=== PATIENT | female | born 1980 | race Caucasian/White ===

== ENCOUNTER 2019-04-16 20:04 | Emergency (ER) | payer BC ==
--- NOTE | 2019-04-16 20:36 | ERPHSYRPT ---
- History of Present Illness Time Seen by Provider: 04/16/19 20:35 Source: patient, family Exam Limitations: no limitations Physician History: This is a 38-year-old obese female who 3 days ago underwent a laparoscopic bilateral oophorectomy with vaginal reconstruction. Soon after surgery patient was experiencing sore throat, shortness of breath and cough. The sore throat has resolved. However her shortness of breath and cough have persisted. Patient denies chest pain. She has no significant abdominal pain. She is noted no abnormal vaginal discharge. Patient states that she has been active and ambulating. Patient had a fever of 100.7 F at home but is afebrile on arrival here in the emergency department. Timing/Duration: day(s) Cough Quality/Degree: mild, dry cough Possible Cause: no prior episodes Modifying Factors: Improves With: coughing, deep breath, exertion Associated Symptoms: fever, cough, shortness of breath, No chest pain/soreness Allergies/Adverse Reactions: azithromycin Allergy (Intermediate, Verified 04/16/19 20:43) Rash cefaclor [From Ceclor] Allergy (Intermediate, Verified 04/16/19 20:43) Rash Home Medications: Docusate Sodium 100 mg [Colace 100 MG] 100 mg PO BID 04/16/19 [History] Ibuprofen 200 mg [Motrin 200 mg] 800 mg PO Q8H PRN PRN 04/16/19 [History] - Review of Systems Constitutional: Fever Eyes: No Symptoms Ears, Nose, & Throat: No Symptoms Respiratory: Cough, Dyspnea, Wheezing Cardiac: No Symptoms, No Chest Pain Abdominal/Gastrointestinal: No Symptoms, No Abdominal Pain, No Nausea, No Vomiting, No Diarrhea Genitourinary Symptoms: No Symptoms Musculoskeletal: No Symptoms Skin: No Symptoms Neurological: No Symptoms Psychological: No Symptoms Endocrine: No Symptoms Hematologic/Lymphatic: No Symptoms Immunological/Allergic: No Symptoms All Other Systems: Reviewed and Negative - Past Medical History Neurological History: No Pertinent History ENT History: No Pertinent History Cardiac History: No Pertinent History Respiratory History: No Pertinent History Endocrine Medical History: No Pertinent History Musculoskeletal History: No Pertinent History GI Medical History: No Pertinent History History: No Pertinent History Psycho-Social History: No Pertinent History Female Reproductive Disorders: No Pertinent History - Past Surgical History Neuro Surgical History: No Pertinent History Cardiac: No Pertinent History Respiratory: No Pertinent History Gastrointestinal: No Pertinent History Genitourinary: No Pertinent History Musculoskeletal: No Pertinent History Female Surgical History: No Pertinent History - Nursing Vital Signs Nursing Vital Signs: Initial Vital Signs Temperature 97.9 F 04/16/19 20:24 Pulse Rate 79 04/16/19 20:24 Respiratory Rate 18 04/16/19 20:24 Blood Pressure 130/65 04/16/19 20:24 O2 Sat by Pulse Oximetry 95 04/16/19 20:24 Pain Scale Pain Intensity 0 - Physical Exam General Appearance: mild distress, alert, anxiety, obese Eye Exam: PERRL/EOMI, eyes nml inspection Ears, Nose, Throat Exam: normal ENT inspection, moist mucous membranes Neck Exam: normal inspection, non-tender, supple, full range of motion Respiratory Exam: normal breath sounds, lungs clear, airway intact, No chest tenderness, No respiratory distress Cardiovascular Exam: regular rate/rhythm, normal heart sounds, normal peripheral pulses Gastrointestinal/Abdomen Exam: soft, normal bowel sounds, No tenderness Pelvic Exam: not done Rectal Exam: not done Back Exam: normal inspection, normal range of motion, No CVA tenderness, No vertebral tenderness Extremity Exam: normal inspection, normal range of motion, pelvis stable Neurologic Exam: alert, oriented x 3, cooperative, 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 Skin Exam: normal color, warm, dry Lymphatic Exam: No adenopathy SpO2 Interpretation: borderline oxygenation O2 Delivery: Room Air - Course Nursing assessment & vital signs reviewed: Yes Ordered Tests: Active Orders 24 hr Category Date Time Status IV Insertion STAT Care 04/16/19 20:49 Active Pulse Oximetry (ED) STAT Care 04/16/19 20:49 Active CHEST 1 VIEW (PORTABLE) Stat Exams 04/16/19 20:50 Taken CHEST WITH CONTRAST [CT] Stat Exams 04/16/19 21:45 Taken BLOOD CULTURE Stat Lab 04/16/19 21:10 Received CBC W DIFF Stat Lab 04/16/19 20:14 Completed CMP Stat Lab 04/16/19 20:14 Completed D-DIMER QUANTITATIVE Stat Lab 04/16/19 21:10 Completed Lactic Acid Stat Lab 04/16/19 22:26 Completed UA W/RFX UR CULTURE Stat Lab 04/16/19 20:14 Completed Respiratory Therapy Assessment DAILY RT 04/16/19 21:47 Active Medication Summary Generic Name Dose Route Start Last Admin Trade Name Freq PRN Reason Stop Dose Admin Levofloxacin/Dextrose 750 mg in 150 mls @ 100 mls/hr 04/16/19 23:11 04/16/19 23:15 Levofloxacin 750mg/150ml D5w IV 04/17/19 00:40 100 mls/hr STAT STA 100 mls/hr Administration Discontinued Medications Generic Name Dose Route Start Last Admin Trade Name Guillermina PRN Reason Stop Dose Admin Hydrocodone Bitart/Acetaminophen 10 ml 04/16/19 20:51 04/16/19 21:23 Hydrocodone-Acetamin 2.5-108/5 Ml Solution PO 04/16/19 20:52 10 ml STAT STA Administration Hydrocodone Bitart/Acetaminophen Confirm 04/16/19 21:22 Hydrocodone-Acetamin 2.5-108/5 Ml Solution Administered 04/16/19 21:23 Dose 10 ml .ROUTE .STK-MED ONE Albuterol/Ipratropium Confirm 04/16/19 21:42 Duoneb 0.5-3 Mg/3 Ml Neb Administered 04/16/19 21:43 Dose 3 ml IH .STK-MED ONE Albuterol/Ipratropium 3 ml 04/16/19 21:46 04/16/19 21:48 Duoneb 0.5-3 Mg/3 Ml Neb IH 04/16/19 21:47 3 ml STAT ONE Administration Sodium Chloride 1,000 mls @ 999 mls/hr 04/16/19 20:49 04/16/19 22:36 Sodium Chloride 0.9% 1000 Ml IV 04/16/19 21:49 Infused .Q1H1M STA Infusion Sodium Chloride Confirm 04/16/19 21:22 Sodium Chloride 0.9% 1000 Ml Administered 04/16/19 21:23 Dose 1,000 mls @ ud .ROUTE .STK-MED ONE Levofloxacin/Dextrose Confirm 04/16/19 23:14 Levofloxacin 750mg/150ml D5w Administered 04/16/19 23:15 Dose 750 mg in 150 mls @ ud IV .STK-MED ONE Methylprednisolone Sodium Succinate 125 mg 04/16/19 23:11 04/16/19 23:15 Solu-Medrol 125 Mg IV 04/16/19 23:12 125 mg STAT ONE Administration Methylprednisolone Sodium Succinate Confirm 04/16/19 23:14 Solu-Medrol 125 Mg Administered 04/16/19 23:15 Dose 125 mg .ROUTE .STK-MED ONE Lab/Rad Data: Laboratory Result Diagrams 04/16/19 20:14 04/16/19 20:14 Laboratory Results 04/16/19 04/16/19 04/16/19 Range/Units 22:26 21:12 21:10 WBC (4.0-10.5) K/mm3 RBC (4.1-5.4) M/mm3 Hgb (12.0-16.0) gm/dl Hct (35-47) % MCV (78-100) fl MCH (26-32) pg MCHC (32-36) g/dl RDW (11.5-14.0) % Plt Count (150-450) K/mm3 MPV (7.5-11.0) fl Gran % (36.0-66.0) % Eos # (Auto) (0-0.5) Absolute Lymphs (auto) (1.0-4.6) Absolute Monos (auto) (0.0-1.3) Lymphocytes % (24.0-44.0) % Monocytes % (0.0-12.0) % Eosinophils % (0.00-5.0) % Basophils % (0.0-0.4) % Absolute Granulocytes (1.4-6.9) Basophils # (0-0.4) D-Dimer 903 H* (215-500) ng/mL Sodium (137-145) mmol/L Potassium (3.5-5.1) mmol/L Chloride (98-107) mmol/L Carbon Dioxide (22-30) mmol/L Anion Gap (5-15) MEQ/L BUN (7-17) mg/dL Creatinine (0.52-1.04) mg/dL Estimated GFR ML/MIN Glucose (74-106) mg/dL Lactic Acid 1.1 (0.4-2.0) Calcium (8.4-10.2) mg/dL Total Bilirubin (0.2-1.3) mg/dL AST (14-36) U/L ALT (0-35) U/L Alkaline Phosphatase (38-126) U/L Serum Total Protein (6.3-8.2) g/dL Albumin (3.5-5.0) g/dL Urine Color (YELLOW) Urine Appearance (CLEAR) Urine pH (5-6) Ur Specific [place] (1.005-1.025) Urine Protein (Negative) Urine Ketones (NEGATIVE) Urine Blood (0-5) Jude/ul Urine Nitrite (NEGATIVE) Urine Bilirubin (NEGATIVE) Urine Urobilinogen (0-1) mg/dL Ur Leukocyte Esterase (NEGATIVE) Urine WBC (Auto) (0-5) /HPF Urine RBC (Auto) (0-2) /HPF U Epithel Cells (Auto) (FEW) /HPF Urine Bacteria (Auto) (NEGATIVE) /HPF Urine Mucus (Auto) (NEGATIVE) /HPF Urine Culture Reflexed (NO) Urine Glucose (NEGATIVE) mg/dL Influenza Type A Ag NEGATIVE (NEGATIVE) Influenza Type B Ag NEGATIVE (NEGATIVE) RSV (PCR) NEGATIVE (Negative) 04/16/19 04/16/19 04/16/19 Range/Units 20:14 20:14 20:14 WBC 11.3 H (4.0-10.5) K/mm3 RBC 4.44 (4.1-5.4) M/mm3 Hgb 13.7 (12.0-16.0) gm/dl Hct 40.5 (35-47) % MCV 91.2 (78-100) fl MCH 30.9 (26-32) pg MCHC 33.8 (32-36) g/dl RDW 12.5 (11.5-14.0) % Plt Count 232 (150-450) K/mm3 MPV 10.3 (7.5-11.0) fl Gran % 61.5 (36.0-66.0) % Eos # (Auto) 0.48 (0-0.5) Absolute Lymphs (auto) 2.95 (1.0-4.6) Absolute Monos (auto) 0.91 (0.0-1.3) Lymphocytes % 26.1 (24.0-44.0) % Monocytes % 8.0 (0.0-12.0) % Eosinophils % 4.2 (0.00-5.0) % Basophils % 0.2 (0.0-0.4) % Absolute Granulocytes 6.95 H (1.4-6.9) Basophils # 0.02 (0-0.4) D-Dimer (215-500) ng/mL Sodium 135 L (137-145) mmol/L Potassium 4.1 (3.5-5.1) mmol/L Chloride 106 (98-107) mmol/L Carbon Dioxide 23 (22-30) mmol/L Anion Gap 10.6 (5-15) MEQ/L BUN 15 (7-17) mg/dL Creatinine 0.96 (0.52-1.04) mg/dL Estimated GFR > 60.0 ML/MIN Glucose 101 (74-106) mg/dL Lactic Acid (0.4-2.0) Calcium 9.0 (8.4-10.2) mg/dL Total Bilirubin 0.40 (0.2-1.3) mg/dL AST 18 (14-36) U/L ALT 14 (0-35) U/L Alkaline Phosphatase 64 (38-126) U/L Serum Total Protein 7.4 (6.3-8.2) g/dL Albumin 3.9 (3.5-5.0) g/dL Urine Color STRAW (YELLOW) Urine Appearance CLEAR (CLEAR) Urine pH 6.0 (5-6) Ur Specific [place] 1.005 (1.005-1.025) Urine Protein NEGATIVE (Negative) Urine Ketones NEGATIVE (NEGATIVE) Urine Blood NEGATIVE (0-5) Jude/ul Urine Nitrite NEGATIVE (NEGATIVE) Urine Bilirubin NEGATIVE (NEGATIVE) Urine Urobilinogen NEGATIVE (0-1) mg/dL Ur Leukocyte Esterase NEGATIVE (NEGATIVE) Urine WBC (Auto) 0-2 (0-5) /HPF Urine RBC (Auto) NONE (0-2) /HPF U Epithel Cells (Auto) RARE (FEW) /HPF Urine Bacteria (Auto) NONE (NEGATIVE) /HPF Urine Mucus (Auto) SLIGHT (NEGATIVE) /HPF Urine Culture Reflexed NO (NO) Urine Glucose NEGATIVE (NEGATIVE) mg/dL Influenza Type A Ag (NEGATIVE) Influenza Type B Ag (NEGATIVE) RSV (PCR) (Negative) - Progress Progress: improved, re-examined Air Movement: good Progress Note: 04/16/19 23:23 cxr-right upper lobe infiltrate. cta chest-right upper lobe pneumonia; no pulm emboli pt states she is feeling and breathing better. she wants to go home and try outpt tx. i think this is reasonable Blood Culture(s) Obtained: Yes Antibiotics given: Yes Counseled pt/family regarding: lab results, diagnosis, need for follow-up, rad results - Departure Departure Disposition: Home Clinical Impression: Pneumonia Condition: Stable Critical Care Time: No Referrals: MONET CARTER, [employer] [Primary Care Provider] - Additional Instructions: drink plenty of fluids. follow up with primary doctor for further management. return to ED for worsening symptoms Prescriptions: Albuterol 8 gm Mdi Hfa [Ventolin Hfa MDI] 8 gm IH Q4H #1 [email or web address] Hydrocodone Bit/Acetaminophen [Hydrocodone-Acetaminophen Soln] 10 ml PO Q6H # 120 ml Levofloxacin [Levaquin 500 MG Tablet] 500 mg PO DAILY #7 tablet Prednisone 10 mg [Deltasone 10 mg] 10 mg PO TID #9 tablet
[2019-04-16 21:08] LABS: Absolute Neutrophil Ct (ANC) 6.95 (1.4-6.9); BASOPHIL % 0.2 % (0.0-0.4); Basophil (Absolute #) 0.02 (0-0.4); Eosinophil % 4.2 % (0.00-5.0); Eosinophil (Absolute #) 0.48 (0-0.5); Hematocrit 40.5 % (35-47); Hemoglobin 13.7 gm/dl (12.0-16.0); Lymphocyte (Absolute #) 2.95 (1.0-4.6); Lymphocytes % 26.1 % (24.0-44.0); Mean Cell Volume 91.2 fl (78-100); Mean Corpuscular Hemoglobin 30.9 pg (26-32); Mean Corpuscular Hgb Concent. 33.8 g/dl (32-36); Mean Platelet Volume 10.3 fl (7.5-11.0); Monocyte (Absolute #) 0.91 (0.0-1.3); Neutrophil % 61.5 % (36.0-66.0); Platelet Count 232 K/mm3 (150-450); Red Blood Count 4.44 M/mm3 (4.1-5.4); Red Cell Distribution Width 12.5 % (11.5-14.0); White Blood Count 11.3 K/mm3 (4.0-10.5)
[2019-04-16 21:11] LABS: Appearance CLEAR (CLEAR); Bilirubin NEGATIVE (NEGATIVE); Blood NEGATIVE Ery/ul (0-5); Epithelial Cells RARE /HPF (FEW); Glucose NEGATIVE (NEGATIVE); Ketones NEGATIVE (NEGATIVE); Leukocyte Esterase NEGATIVE (NEGATIVE); Mucus SLIGHT /HPF (NEGATIVE); Nitrite NEGATIVE (NEGATIVE); Protein,Urine Dip NEGATIVE (Negative); Specific Gravity 1.005 (1.005-1.025); Urobilinogen NEGATIVE mg/dL (0-1); WBC 0-2 /HPF (0-5)
[2019-04-16 21:16] LABS: ALBUMIN 3.9 g/dL (3.5-5.0); ALKALINE PHOSPHATASE 64 U/L (38-126); ANION GAP 10.6 MEQ/L (5-15); BLOOD UREA NITROGEN 15 mg/dL (7-17); CHLORIDE 106 mmol/L (98-107); Carbon Dioxide 23 mmol/L (22-30); Creatinine 1 0.96 mg/dL (0.52-1.04); Glucose 101 mg/dL (74-106); Potassium 4.1 mmol/L (3.5-5.1); SGOT/AST 18 U/L (14-36); SGPT/ALT 14 U/L (0-35); SODIUM 135 mmol/L (137-145); Total Protein 7.4 g/dL (6.3-8.2)
[2019-04-16] MEDS ORDERED: HYDROCODONE-ACETAMIN 2.5-108/5 ML SOLUTION ONE ×2 (21:22→23:38)
[2019-04-16] MEDS ORDERED: Sodium Chloride 0.9% 1000 ML 1,000 ML ONE (21:22)
[2019-04-16] MEDS: HYDROCODONE-ACETAMIN 2.5-108/5 ML SOLUTION PO STA ×2 (21:23→23:40)
[2019-04-16] MEDS: Sodium Chloride 0.9% 1000 ML 1,000 ML IV STA (21:23)
[2019-04-16] MEDS ORDERED: DUONEB 0.5-3 MG/3 ml Neb IH ONE (21:42)
[2019-04-16] MEDS: DUONEB 0.5-3 MG/3 ml Neb IH ONE (21:48)
[2019-04-16 21:57] LABS: INFLUENZA A NEGATIVE (NEGATIVE); INFLUENZA B NEGATIVE (NEGATIVE); RESPIRATORY SYNCTIAL VIRUS NEGATIVE (Negative)
[2019-04-16] MEDS ORDERED: LEVOFLOXACIN 750MG/150ML D5W 750 MG/150 ML BAG IV ONE (23:14)
[2019-04-16] MEDS ORDERED: solu-MEDROL 125 MG ONE (23:14)
[2019-04-16] MEDS: LEVOFLOXACIN 750MG/150ML D5W 750 MG/150 ML BAG IV STA (23:15)
[2019-04-16] MEDS: solu-MEDROL 125 MG IV ONE (23:15)
[2019-04-17 00:57] VITALS: BP 154/91; PULSE 78; O2SAT 97
--- NOTE | 2019-04-17 09:03 | XRAY ---
Indication: Fever, cough, and elevated d-dimer. Pneumonia. Status post bilateral oophorectomy. Multiple contiguous axial images obtained through the chest using 80 cc Isovue 370 contrast and PE protocol. Comparison: None There is good opacification of the pulmonary arteries to include the lobar and segmental branches. No filling defect or pulmonary embolus. Heart is not enlarged. Aorta is normal in course and caliber. No pathologic mediastinal/hilar lymphadenopathy. Examination of lung parenchyma demonstrates posterior right upper lobe consolidating airspace disease. Minimal bilateral dependent atelectasis. No suspicious pulmonary mass or effusion. Bony thorax intact with minimal degenerative changes throughout the spine. Limited upper abdomen demonstrates mild fatty liver, 13 cm splenomegaly, and cholecystectomy clips. There is small air collection in the deep muscles of the right flank/mid axillary line and minimal anterior abdominal subcutaneous soft tissue changes presumed related to recent surgery. Impression: 1. Negative pulmonary embolus. 2. Right upper lobe consolidating pneumonia. 3. Incidental fatty liver and splenomegaly. Comment: Preliminary interpretation was made by [facility]. No critical discrepancy.
--- NOTE | 2019-04-17 09:05 | XRAY ---
Indication: Cough and short of breath. Status post bilateral oophorectomy. Comparison: None Portable apical lordotic chest demonstrates inferior right upper lobe airspace disease. Remaining heart and lungs normal. Bony thorax intact with incidental right upper quadrant abdomen subcutaneous air presumed related to recent surgery.
== END 2019-04-17 00:47 | disposition home or self-care (01) ==
LOC: ED 20:04
DX: J18.9 Pneumonia, unspecified organism (principal)
CPT/HCPCS: 36000; 36415; 71045; 71260; 80053; 81001; 83605; 85025; 85379; 87040; 87631; 94640; 94760; 96360; 96365; 96374; 99284; J1956; J2930; A9270-GY

== ENCOUNTER 2019-04-24 10:26 | Emergency (ER) | payer BC ==
--- NOTE | 2019-04-24 10:37 | ERPHSYRPT ---
- History of Present Illness Time Seen by Provider: 04/24/19 10:37 Source: patient, family Exam Limitations: no limitations Physician History: This is a 38-year-old female who presents with coughing symptoms. On 04/16/2019 patient was diagnosed with a postoperative right upper lobe pneumonia. A CAT scan with contrast was performed on that same date and there was no evidence of any pulmonary emboli. Patient was treated as an outpatient with albuterol inhaler, Lortab elixir, Levaquin and prednisone. Patient symptoms were improving. However in the last couple days patient's symptoms have returned. Patient was seen at her primary care physician's office earlier today and patient decided to come to the emergency department for further evaluation and management. Patient is allergic to azithromycin and cefaclor. Patient denies chest pain. Patient was tested for influenza today in the office and this was reported to me as being negative. Timing/Duration: day(s) (Couple of) Cough Quality/Degree: moderate, dry cough Possible Cause: occasional episodes Modifying Factors: Improves With: coughing Associated Symptoms: cough Allergies/Adverse Reactions: azithromycin Allergy (Intermediate, Verified 04/24/19 10:46) Rash cefaclor [From [facility]] Allergy (Intermediate, Verified 04/24/19 10:46) Rash Home Medications: Docusate Sodium 100 mg [Colace 100 MG] 100 mg PO BID 04/16/19 [History] Ibuprofen 200 mg [Motrin 200 mg] 800 mg PO Q8H PRN PRN 04/16/19 [History] Hx Tetanus, Diphtheria Vaccination/Date Given: Yes Hx Influenza Vaccination/Date Given: Yes Hx Pneumococcal Vaccination/Date Given: No - Review of Systems Constitutional: No Symptoms Eyes: No Symptoms Ears, Nose, & Throat: No Symptoms Respiratory: Cough Cardiac: No Symptoms Abdominal/Gastrointestinal: No Symptoms Genitourinary Symptoms: No Symptoms Musculoskeletal: No Symptoms Skin: No Symptoms Neurological: No Symptoms Psychological: No Symptoms Endocrine: No Symptoms Hematologic/Lymphatic: No Symptoms Immunological/Allergic: No Symptoms All Other Systems: Reviewed and Negative - Past Medical History Pertinent Past Medical History: Yes Neurological History: No Pertinent History ENT History: No Pertinent History Cardiac History: No Pertinent History Respiratory History: No Pertinent History Endocrine Medical History: No Pertinent History Musculoskeletal History: No Pertinent History GI Medical History: No Pertinent History History: No Pertinent History Psycho-Social History: No Pertinent History Female Reproductive Disorders: No Pertinent History Other Medical History: stump tumor, ear problems - Past Surgical History Past Surgical History: Yes Neuro Surgical History: No Pertinent History Cardiac: No Pertinent History Respiratory: No Pertinent History Gastrointestinal: No Pertinent History Genitourinary: No Pertinent History Musculoskeletal: No Pertinent History Female Surgical History: No Pertinent History Other Surgical History: mastoidectomy, mult ear surgeries, tube lt ear. hysterectomy- stump tumor- 2 yrs ago. bilat oopherectomy on - Social History Smoking Status: Current every day smoker How long have you smoked: 20yrs Exposure to second hand smoke: No Patient Lives Alone: No - Nursing Vital Signs Nursing Vital Signs: Initial Vital Signs Temperature 97.7 F 04/24/19 10:36 Pulse Rate 94 H 04/24/19 10:36 Blood Pressure 131/96 04/24/19 10:36 O2 Sat by Pulse Oximetry 99 04/24/19 10:36 Pain Scale Pain Intensity 0 - Physical Exam General Appearance: mild distress, alert, anxiety, obese Eye Exam: PERRL/EOMI Ears, Nose, Throat Exam: normal ENT inspection, moist mucous membranes Neck Exam: normal inspection, non-tender, supple, full range of motion Respiratory Exam: normal breath sounds, lungs clear, airway intact, No chest tenderness, No respiratory distress, No accessory muscle use Cardiovascular Exam: regular rate/rhythm, normal heart sounds, normal peripheral pulses Gastrointestinal/Abdomen Exam: soft, normal bowel sounds, No tenderness Pelvic Exam: not done Rectal Exam: not done Back Exam: normal inspection, normal range of motion, No CVA tenderness, No vertebral tenderness Extremity Exam: normal inspection, normal range of motion, pelvis stable Neurologic Exam: alert, oriented x 3, cooperative, laminate floor installer II-XII nml as tested Skin Exam: normal color, warm, dry Lymphatic Exam: No adenopathy SpO2 Interpretation: normal O2 Delivery: Room Air - Course Nursing assessment & vital signs reviewed: Yes Ordered Tests: Active Orders 24 hr Category Date Time Status Final Cleaner STAT Care 04/24/19 10:56 Active IV Insertion STAT Care 04/24/19 10:55 Active Pulse Oximetry (ED) STAT Care 04/24/19 10:55 Active CHEST 1 VIEW (PORTABLE) Stat Exams 04/24/19 10:56 Completed CBC W DIFF Stat Lab 04/24/19 11:00 Completed CMP Stat Lab 04/24/19 11:00 Completed Lactic Acid Stat Lab 04/24/19 10:55 Ordered NT PRO BNP Stat Lab 04/24/19 11:00 Completed Peak Expiratory Flow Rate ONCE RT 04/24/19 11:24 Active Respiratory Therapy Assessment ONCE RT 04/24/19 11:25 Active Medication Summary Discontinued Medications Generic Name Dose Route Start Last Admin Trade Name Freq PRN Reason Stop Dose Admin Hydrocodone Bitart/Acetaminophen 15 ml 04/24/19 10:57 04/24/19 11:06 Hydrocodone-Acetamin 2.5-108/5 Ml Solution PO 04/24/19 10:58 15 ml STAT STA Administration Hydrocodone Bitart/Acetaminophen Confirm 04/24/19 11:04 Hydrocodone-Acetamin 2.5-108/5 Ml Solution Administered 04/24/19 11:05 Dose 15 ml .ROUTE .STK-MED ONE Albuterol Sulfate 2.5 mg 04/24/19 10:55 04/24/19 11:23 Proventil 2.5 Mg/3 Ml Neb IH 04/24/19 10:56 2.5 mg STAT ONE Administration Albuterol Sulfate Confirm 04/24/19 11:21 Proventil 2.5 Mg/3 Ml Neb Administered 04/24/19 11:22 Dose 2.5 mg IH .STK-MED ONE Sodium Chloride 1,000 mls @ 999 mls/hr 04/24/19 10:55 04/24/19 11:07 Sodium Chloride 0.9% 1000 Ml IV 04/24/19 11:55 999 mls/hr .Q1H1M STA Administration Sodium Chloride Confirm 04/24/19 11:04 Sodium Chloride 0.9% 1000 Ml Administered 04/24/19 11:05 Dose 1,000 mls @ ud .ROUTE .STK-MED ONE Methylprednisolone Sodium Succinate 125 mg 04/24/19 10:55 04/24/19 11:06 Solu-Medrol 125 Mg IV 04/24/19 10:56 125 mg STAT ONE Administration Methylprednisolone Sodium Succinate Confirm 04/24/19 11:04 Solu-Medrol 125 Mg Administered 04/24/19 11:05 Dose 125 mg .ROUTE .STK-MED ONE Lab/Rad Data: Laboratory Result Diagrams 04/24/19 11:00 04/24/19 11:00 Laboratory Results 04/24/19 04/24/19 Range/Units 11:00 11:00 WBC 13.7 H (4.0-10.5) K/mm3 RBC 4.64 (4.1-5.4) M/mm3 Hgb 14.1 (12.0-16.0) gm/dl Hct 42.3 (35-47) % MCV 91.2 (78-100) fl MCH 30.4 (26-32) pg MCHC 33.3 (32-36) g/dl RDW 12.8 (11.5-14.0) % Plt Count 265 (150-450) K/mm3 MPV 10.2 (7.5-11.0) fl Gran % 63.4 (36.0-66.0) % Eos # (Auto) 0.42 (0-0.5) Absolute Lymphs (auto) 3.87 (1.0-4.6) Absolute Monos (auto) 0.69 (0.0-1.3) Lymphocytes % 28.3 (24.0-44.0) % Monocytes % 5.0 (0.0-12.0) % Eosinophils % 3.1 (0.00-5.0) % Basophils % 0.2 (0.0-0.4) % Absolute Granulocytes 8.67 H (1.4-6.9) Basophils # 0.03 (0-0.4) Sodium 140 (137-145) mmol/L Potassium 4.0 (3.5-5.1) mmol/L Chloride 109 H (98-107) mmol/L Carbon Dioxide 23 (22-30) mmol/L Anion Gap 11.5 (5-15) MEQ/L BUN 14 (7-17) mg/dL Creatinine 0.82 (0.52-1.04) mg/dL Estimated GFR > 60.0 ML/MIN Glucose 108 H (74-106) mg/dL Calcium 9.5 (8.4-10.2) mg/dL Total Bilirubin 0.30 (0.2-1.3) mg/dL AST 19 (14-36) U/L ALT 14 (0-35) U/L Alkaline Phosphatase 55 (38-126) U/L NT-Pro-B Natriuret Pep 31.3 (0-450) pg/mL Serum Total Protein 7.7 (6.3-8.2) g/dL Albumin 4.1 (3.5-5.0) g/dL - Progress Progress: improved, re-examined Air Movement: good Progress Note: 04/24/19 12:30 X-ray reveals clearing of a previous right lung infiltrate. No acute process present. Patient states that she is breathing better now and her cough is not as severe. Patient states overall she has improved. Blood Culture(s) Obtained: No Antibiotics given: Yes Counseled pt/family regarding: lab results, diagnosis, need for follow-up, rad results - Departure Departure Disposition: Home Clinical Impression: Bronchitis Condition: Stable Critical Care Time: No Referrals: MONET CARTER, [employer]IST [Primary Care Provider] - Additional Instructions: Drink plenty of fluids. Be up and active. Take your medication as prescribed. Follow-up with your primary care physician for persistent symptoms. Prescriptions: Hydrocodone Bit/Acetaminophen [Hydrocodone-Acetaminophen Soln] 10 ml PO Q6H # 120 ml Methylprednisolone Packet [Medrol Dosepack] 4 mg PO UD #1 packet Smz/Tmp Ds Tablet [Bactrim Ds Tablet] 1 udtab PO BID #14 tablet
[2019-04-24] MEDS ORDERED: solu-MEDROL 125 MG IV ONE (10:55)
[2019-04-24] MEDS ORDERED: Sodium Chloride 0.9% 1000 ML 1,000 ML IV STA (10:55)
[2019-04-24] MEDS ORDERED: PROVENTIL 2.5 MG/3 ML NEB IH ONE ×2 (10:55→11:21)
[2019-04-24] MEDS ORDERED: HYDROCODONE-ACETAMIN 2.5-108/5 ML SOLUTION PO STA (10:57)
[2019-04-24] MEDS ORDERED: solu-MEDROL 125 MG ONE (11:04)
[2019-04-24] MEDS ORDERED: Sodium Chloride 0.9% 1000 ML 1,000 ML ONE (11:04)
[2019-04-24] MEDS ORDERED: HYDROCODONE-ACETAMIN 2.5-108/5 ML SOLUTION ONE (11:04)
[2019-04-24 11:19] LABS: Absolute Neutrophil Ct (ANC) 8.67 (1.4-6.9); BASOPHIL % 0.2 % (0.0-0.4); Basophil (Absolute #) 0.03 (0-0.4); Eosinophil % 3.1 % (0.00-5.0); Eosinophil (Absolute #) 0.42 (0-0.5); Hematocrit 42.3 % (35-47); Hemoglobin 14.1 gm/dl (12.0-16.0); Lymphocyte (Absolute #) 3.87 (1.0-4.6); Lymphocytes % 28.3 % (24.0-44.0); Mean Cell Volume 91.2 fl (78-100); Mean Corpuscular Hemoglobin 30.4 pg (26-32); Mean Corpuscular Hgb Concent. 33.3 g/dl (32-36); Mean Platelet Volume 10.2 fl (7.5-11.0); Monocyte (Absolute #) 0.69 (0.0-1.3); Neutrophil % 63.4 % (36.0-66.0); Platelet Count 265 K/mm3 (150-450); Red Blood Count 4.64 M/mm3 (4.1-5.4); Red Cell Distribution Width 12.8 % (11.5-14.0); White Blood Count 13.7 K/mm3 (4.0-10.5)
--- NOTE | 2019-04-24 11:36 | XRAY ---
Indication: Follow-up pneumonia. Cough. Comparison: April 16, 2019. Portable chest is now clear. Heart and mediastinal structures within normal limits. Bony thorax intact. Impression: Nonacute chest.
[2019-04-24 11:40] LABS: ALBUMIN 4.1 g/dL (3.5-5.0); ALKALINE PHOSPHATASE 55 U/L (38-126); ANION GAP 11.5 MEQ/L (5-15); BLOOD UREA NITROGEN 14 mg/dL (7-17); CHLORIDE 109 mmol/L (98-107); Calcium 9.5 mg/dL (8.4-10.2); Carbon Dioxide 23 mmol/L (22-30); Creatinine 1 0.82 mg/dL (0.52-1.04); Glucose 108 mg/dL (74-106); NT PRO BNP 31.3 pg/mL (0-450); SGOT/AST 19 U/L (14-36); SGPT/ALT 14 U/L (0-35); SODIUM 140 mmol/L (137-145); Total Protein 7.7 g/dL (6.3-8.2)
[2019-04-24] MEDS ORDERED: BACTRIM DS TABLET PO STA (12:33)
[2019-04-24] MEDS ORDERED: BACTRIM DS TABLET PO ONE (12:38)
[2019-04-24 12:50] VITALS: BP 103/62; PULSE 72; O2SAT 95
== END 2019-04-24 12:58 | disposition home or self-care (01) ==
LOC: ED 10:26
DX: J40 Bronchitis, not specified as acute or chronic (principal); R91.8 Other nonspecific abnormal finding of lung field
CPT/HCPCS: 36000; 36415; 71045; 80053; 83880; 85025; 93041; 94150; 94640; 94760; 96374; 99284; J2930; J7609; A9270-GY

== ENCOUNTER 2023-11-13 07:27 | Emergency (ER) | payer BC ==
[2023-11-13 07:40] VITALS: TEMP 97.8
--- NOTE | 2023-11-13 08:03 | ERPHSYRPT ---
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 Patient denies any nausea or vomiting. Denies any known sick contact. No history of Crohn's/ulcerative colitis/IBD's. Allergies/Adverse Reactions: azithromycin Allergy (Intermediate, Verified 11/13/23 07:40) Rash cefaclor [From Ceclor] Allergy (Intermediate, Verified 11/13/23 07:40) Rash Hx Tetanus, Diphtheria Vaccination/Date Given: Yes Hx Influenza Vaccination/Date Given: Yes Hx Pneumococcal Vaccination/Date Given: No Travel Risk - International Travel Have you traveled outside of the country in past 3 weeks: No - Emerging Infectious Disease Are you exhibiting symptoms associated with any current EIDs: Yes Symptoms: Abdominal Pain, Diarrhea - Review of Systems Constitutional: No Symptoms Eyes: No Symptoms Ears, Nose, & Throat: No Symptoms Respiratory: No Symptoms Cardiac: No Symptoms Abdominal/Gastrointestinal: Abdominal Pain, Diarrhea Genitourinary Symptoms: No Symptoms Musculoskeletal: No Symptoms Skin: No Symptoms Neurological: No Symptoms Psychological: No Symptoms Endocrine: No Symptoms Hematologic/Lymphatic: No Symptoms Immunological/Allergic: No Symptoms - Past Medical History Pertinent Past Medical History: Yes Neurological History: No Pertinent History ENT History: No Pertinent History Cardiac History: No Pertinent History Respiratory History: No Pertinent History Endocrine Medical History: No Pertinent History Musculoskeletal History: No Pertinent History GI Medical History: No Pertinent History History: No Pertinent History Psycho-Social History: No Pertinent History Female Reproductive Disorders: No Pertinent History Other Medical History: stump tumor, ear problems - Past Surgical History Past Surgical History: Yes Neuro Surgical History: No Pertinent History Cardiac: No Pertinent History Respiratory: No Pertinent History Gastrointestinal: No Pertinent History Genitourinary: No Pertinent History Musculoskeletal: No Pertinent History Female Surgical History: No Pertinent History Other Surgical History: mastoidectomy, mult ear surgeries, tube lt ear. hysterectomy- stump tumor- 2 yrs ago. bilat oopherectomy on - Female History Hx Now: No - Social History Smoking Status: Current every day smoker How long have you smoked: 20yrs Exposure to second hand smoke: Yes Drug Use: none Patient Lives Alone: No - Social Determinants of Health Will the patient participate in the screening: Yes Do you worry about a steady place to live?: No Do you have any problems with any of the following?: No known problems In the past 12 months,have you had to go without utilities?: No Transportation Issues: No Has anyone in your support network made you feel unsafe?: No Have you or anyone in your house had to go without enough: No - Nursing Vital Signs Nursing Vital Signs: Initial Vital Signs Temperature 97.8 F 11/13/23 07:31 Pulse Rate 110 H 11/13/23 07:31 Blood Pressure 127/103 11/13/23 07:31 O2 Sat by Pulse Oximetry 97 11/13/23 07:31 Pain Scale Pain Intensity 0 - Physical Exam General Appearance: no apparent distress, alert Eye Exam: PERRL/EOMI Ears, Nose, Throat Exam: normal ENT inspection Neck Exam: normal inspection, full range of motion Respiratory Exam: normal breath sounds, lungs clear Cardiovascular Exam: normal heart sounds, tachycardia Gastrointestinal/Abdomen Exam: soft, normal bowel sounds, tenderness (Neurolyse more in the upper abdomen) Extremity Exam: normal inspection, normal range of motion Neurologic Exam: alert, oriented x 3, cooperative Skin Exam: normal color SpO2 Interpretation: normal SpO2: 97 O2 Delivery: Room Air Ordered Tests: Active Orders 24 hr Category Date Time Status IV Insertion STAT Care 11/13/23 07:59 Active NPO (ED) STAT Care 11/13/23 07:59 Active ABDOMEN AND PELVIS W/0 CONTRAS [CT] Stat Exams 11/13/23 08:32 Completed CBC W DIFF Stat Lab 11/13/23 08:15 Completed CMP Stat Lab 11/13/23 08:15 Completed LIPASE Stat Lab 11/13/23 08:15 Completed UA W/RFX UR CULTURE Stat Lab 11/13/23 08:13 Completed Medication Summary Discontinued Medications Generic Name Dose Route Start Last Admin Trade Name Guillermina PRN Reason Stop Dose Admin Hydromorphone HCl 1 mg 11/13/23 10:22 11/13/23 10:38 Hydromorphone 1 Mg/1ml Inj IM 11/13/23 10:23 1 mg STAT ONE Administration Hydromorphone HCl Confirm 11/13/23 10:31 Hydromorphone 1 Mg/1ml Inj Administered 11/13/23 10:32 Dose 1 mg .ROUTE .STK-MED ONE Sodium Chloride 1,000 mls @ 999 mls/hr 11/13/23 07:59 11/13/23 08:14 Sodium Chloride 0.9% 1000 Ml IV 11/13/23 08:59 Not Given .Q1H1M STA Ketorolac Tromethamine Confirm 11/13/23 09:25 Ketorolac Tromethamine 30 Mg/Ml Inj Administered 11/13/23 09:26 Dose 30 mg .ROUTE .STK-MED ONE Ketorolac Tromethamine 30 mg 11/13/23 09:28 11/13/23 09:32 Ketorolac Tromethamine 30 Mg/Ml Inj IM 11/13/23 09:29 30 mg STAT ONE Administration Morphine Sulfate 4 mg 11/13/23 07:59 11/13/23 08:14 Morphine Sulfate 4 Mg/Ml Injection IV 11/13/23 08:00 Not Given STAT ONE Morphine Sulfate 4 mg 11/13/23 08:12 11/13/23 08:14 Morphine Sulfate 4 Mg/Ml Injection IM 11/13/23 08:13 4 mg STAT ONE Administration Morphine Sulfate Confirm 11/13/23 08:12 Morphine Sulfate 4 Mg/Ml Injection Administered 11/13/23 08:13 Dose 4 mg .ROUTE .STK-MED ONE Ondansetron HCl 4 mg 11/13/23 07:59 11/13/23 08:16 Ondansetron Hcl 4 Mg/2 Ml Vial IV 11/13/23 08:00 Not Given STAT ONE Ondansetron HCl Confirm 11/13/23 08:12 Zofran 4 Mg/Udtablet Orally Disintegrating Administered 11/13/23 08:13 Dose 4 mg .ROUTE .STK-MED ONE Ondansetron HCl 4 mg 11/13/23 08:15 11/13/23 08:16 Zofran 4 Mg/Udtablet Orally Disintegrating PO 11/13/23 08:16 4 mg STAT ONE Administration Lab/Rad Data: Laboratory Result Diagrams 11/13/23 08:15 11/13/23 08:15 Laboratory Results 11/13/23 11/13/23 11/13/23 Range/Units 08:15 08:15 08:13 WBC 9.8 (3.98-10.04) x10^3/uL RBC 4.61 (3.93-5.22) x10^6/uL Hgb 14.1 (11.2-15.7) g/dL Hct 41.5 (34.1-44.9) % MCV 90.0 (79.4-94.8) fL MCH 30.6 (25.6-32.2) pg MCHC 34.0 (32.2-35.5) g/dL RDW 13.0 (11.7-14.4) % Plt Count 235 (182-369) x10^3/uL MPV 10.7 (9.4-12.3) fL Gran % 62.6 (34.0-71.1) % Immature Gran % (Auto) 0.3 (0.001-0.429) % Nucleat RBC Rel Count 0.0 (0.00-0.2) % Eos # (Auto) 0.23 (0.04-0.36) x10^3/uL Immature Gran # (Auto) 0.03 (0.001-0.031) x10^3u/L Absolute Lymphs (auto) 2.86 (1.18-3.74) x10^3/uL Absolute Monos (auto) 0.50 (0.24-0.86) x10^3/uL Absolute Nucleated RBC 0.00 (0.00-0.012) x10^3u/L Lymphocytes % 29.3 (19.3-51.7) % Monocytes % 5.1 (4.7-12.5) % Eosinophils % 2.4 (0.7-5.8) % Basophils % 0.3 (0.1-1.2) % Absolute Granulocytes 6.11 (1.56-6.13) x10^3/uL Basophils # 0.03 (0.01-0.08) x10^3/uL Sodium 135 (135-145) mmol/L Potassium 4.3 (3.5-5.1) mmol/L Chloride 109 H (98-107) mmol/L Carbon Dioxide 18 L (22-30) mmol/L Anion Gap 12.0 (5-15) MEQ/L BUN 9 (7-17) mg/dL Creatinine 0.83 (0.52-1.04) mg/dL Estimated GFR 90.2 ML/MIN Glucose 143 H (74-106) mg/dL Calcium 9.2 (8.4-10.2) mg/dL Total Bilirubin 0.60 (0.2-1.3) mg/dL AST 25 (14-36) U/L ALT 24 (0-35) U/L Alkaline Phosphatase 60 (38-126) U/L Serum Total Protein 7.2 (6.3-8.2) g/dL Albumin 4.1 (3.5-5.0) g/dL Lipase 65 (23-300) U/L Urine Color Yellow (Yellow) Urine Appearance Clear (Clear) Urine pH 5.0 (4.6-8.0) Ur Specific [place] 1.010 (1.005-1.030) Urine Protein Negative (Negative) Urine Glucose (UA) Negative (Negative) mg/dL Urine Ketones Negative (Negative) Urine Blood Negative (Negative) Urine Nitrite Negative (Negative) Urine Bilirubin Negative (Negative) Urine Urobilinogen 0.2 (0.2) mg/dL Ur Leukocyte Esterase Negative (Negative) U Hyaline Cast (Auto) NONE SEEN (0-2) /LPF Urine Microscopic RBC 0-2 (0-5) /HPF Urine Microscopic WBC 0-2 (0-5) /HPF Ur Epithelial Cells Few (None Seen) /HPF Urine Bacteria Rare A (None Seen) /HPF Urine Culture Reflexed NO (NO) - Progress Progress: improved, pain not gone completely, re-examined Progress Note: 11/13/23 11:00 43 years old is evaluated in the ER for abdominal cramping and diarrhea without hematochezia since yesterday. Patient has a history of lupus and rheumatoid, not taking any medications currently. Patient has no history of Crohn's or ulcerative colitis. She is given fluids and symptomatic treatment, on reevaluation her pain is better but still having cramping off and on. Patient workup showed normal white count, fairly unremarkable chemistries. No UTI. CT finding consistent with mesenteric adenitis versus ileitis. I would give her a short course of steroids as patient does have history of autoimmune's disease and recommended outpatient follow-up with her primary care and needs to have col onoscopy done for further evaluation if her symptoms persist. Will give her pain medications as well. I do not think patient needs to be admitted or any other workup is required at this moment. On repeated evaluation abdominal exam is soft with minimal tenderness to deep palpation. Discussed signs symptoms of worsening needing return to ER which patient seems understanding. Stable for discharge. Counseled pt/family regarding: lab results, diagnosis, need for follow-up, rad results Medical Desision Making - Diagnostic Testing Diagnostic test were ordered, analyzed, and reviewed by me: Yes Radiological Interpretation: Reviewed by me, Teleradiologist Report - Risk of complications The pt has a mod risk of morbidity or mortality based on: Need for prescription drug management - Departure Departure Disposition: Home Clinical Impression: Mesenteric adenitis, Ileitis Condition: Stable Critical Care Time: No Referrals: MONET CARTER, [employer] [Primary Care Provider] - Follow up with PCP 1 day Instructions: Severe Abdominal Pain, Adult (DC), Mesenteric Lymphadenitis (DC) Additional Instructions: Take Tylenol as needed. Follow-up with primary care for reevaluation. May need outpatient appointment for colonoscopy for further evaluation to rule out Crohn's. Return to ER for intractable pain/vomiting diarrhea or if have blood in stool/if develop fever chills etc. Prescriptions: Hydrocodone/Acetaminophen [Hydrocodone-Acetamin 5-325 mg] 1 tab PO Q6HPRN PRN 3 Days #12 tablet MDD 4 PRN Reason: Pain Prednisone 20 mg [Deltasone 20 mg] 60 mg PO DAILY 5 Days #15 tablet
[2023-11-13] MEDS ORDERED: MORPHINE SULFATE 4 MG INJ ONE (08:12)
[2023-11-13] MEDS ORDERED: ZOFRAN ODT 4 MG ONE (08:12)
[2023-11-13] MEDS: Sodium Chloride 0.9% 1000 ML 1,000 ML IV STA (08:14)
[2023-11-13] MEDS: MORPHINE SULFATE 4 MG INJ IM ONE (08:14)
[2023-11-13] MEDS: MORPHINE SULFATE 4 MG INJ IV ONE (08:14)
[2023-11-13] MEDS: ZOFRAN ODT 4 MG PO ONE (08:16)
[2023-11-13] MEDS: Zofran 4 MG/2 ML VIAL IV ONE (08:16)
[2023-11-13 08:32] VITALS: PULSE 70; RESP 16
[2023-11-13 08:34] LABS: Absolute Neutrophil Ct (ANC) 6.11 x10^3/uL (1.56-6.13); BASOPHIL % 0.3 % (0.1-1.2); Basophil (Absolute #) 0.03 x10^3/uL (0.01-0.08); Eosinophil % 2.4 % (0.7-5.8); Eosinophil (Absolute #) 0.23 x10^3/uL (0.04-0.36); Hematocrit 41.5 % (34.1-44.9); Hemoglobin 14.1 g/dL (11.2-15.7); IMMATURE GRAN # 0.03 x10^3u/L (0.001-0.031); IMMATURE GRAN % 0.3 % (0.001-0.429); Lymphocyte (Absolute #) 2.86 x10^3/uL (1.18-3.74); Lymphocytes % 29.3 % (19.3-51.7); Mean Corpuscular Hemoglobin 30.6 pg (25.6-32.2); Mean Platelet Volume 10.7 fL (9.4-12.3); Monocytes % 5.1 % (4.7-12.5); Neutrophil % 62.6 % (34.0-71.1); Platelet Count 235 x10^3/uL (182-369); Red Blood Count 4.61 x10^6/uL (3.93-5.22); White Blood Count 9.8 x10^3/uL (3.98-10.04)
[2023-11-13 08:41] LABS: Appearance Clear (Clear); Bacteria Rare /HPF (None Seen); Bilirubin Negative (Negative); Blood Negative (Negative); Epithelial Cells Few /HPF (None Seen); Glucose, Urine Negative (Negative); Hyaline Casts NONE SEEN /LPF (0-2); Ketones Negative (Negative); Leukocyte Esterase Negative (Negative); Nitrite Negative (Negative); Protein,Urine Dip Negative (Negative); RBC 0-2 /HPF (0-5); Urobilinogen 0.2 mg/dL (0.2); WBC 0-2 /HPF (0-5)
[2023-11-13 08:42] LABS: ALBUMIN 4.1 g/dL (3.5-5.0); BILIRUBIN,TOTAL 0.6 mg/dL (0.2-1.3); Calcium 9.2 mg/dL (8.4-10.2); Creatinine 1 0.83 mg/dL (0.52-1.04); EST GLOMERULAR FILTRATION RATE 90.2 ML/MIN; Potassium 4.3 mmol/L (3.5-5.1); Total Protein 7.2 g/dL (6.3-8.2)
[2023-11-13] MEDS ORDERED: TORAdol 30 mg Injection ONE (09:25)
[2023-11-13] MEDS: TORAdol 30 mg Injection IM ONE (09:32)
--- NOTE | 2023-11-13 09:42 | XRAY ---
CLINICAL HISTORY: abd pain COMPARISON: No prior studies are available for comparison. TECHNIQUE: CT of the abdomen and pelvis was performed, with the following protocol: axial images, and reconstructed coronal and sagittal images. No intravenous contrast was administered. One of the following dose reduction techniques was utilized for this exam: Automated exposure control, adjustment of the mA and/or kV according to patient size, and use of iterative reconstruction. CTDI:23.26mGy, DLP: 1330.56mgy*cm. FINDINGS: Abdomen: Liver: Enlarged liver, right lobe span is 22 cm. Diffuse low density in the liver parenchyma, inferring steatosis. No focal lesions, cysts, or masses were identified. Gallbladder and Biliary System: Cholecystectomy. The intra and extra-hepatic biliary systems are unremarkable. Pancreas: Pancreatic head, body, and tail are visualized and appear normal in size and density. No pancreatic masses or calcifications were noted. Spleen: Normal in size, shape, and density. No splenic lesions or masses were identified. Kidneys and Adrenal Glands: Both kidneys are normal in size, shape, and position. Cortical thickness is within normal limits. A hypodense nodular image is seen in the mid-third of the left kidney, measuring 1.4 cm, likely to be a cyst. No renal calculi or hydronephrosis. Adrenal glands are unremarkable. Appendix: The appendix is normal in size without ryan appendiceal fat stranding and without an appendicolith. No evidence of appendiceal abscess or perforation. Pelvis: Urinary Bladder: Normal in contour and wall thickness. No intraluminal lesions. Uterus: Not visualised, likely surgically removed. Ovaries: Not well visualized but no gross abnormalities noted. Vagina: Normal in contour and wall thickness. Cervix: No evidence of mass or abnormal thickening. Pelvic phleboliths. Peritoneal and Retroperitoneal Structures: No abnormal fluid collections were identified within the abdomen or pelvis. Few free fluid is seen in the pelvis, in physiologic volume. No lymphadenopathy was noted. Few calcified atheromatosis are seen on the aorta. Bowel: Thickened ileal loops with surrounding fat stranding, and reactive-looking mesenteric adenitis. The visualized bowel loops are normal in caliber and appearance. No evidence of bowel obstruction or wall thickening. Bones and Soft Tissues: Minimal pelvic free fluid. Pelvic bones and soft tissues are unremarkable. No fractures or abnormal masses were identified. Enlargement of the inguinal canals with fat content. IMPRESSION: 1. Thickened ileal loops with surrounding fat stranding, and reactive-looking mesenteric adenitis, could be illeiits. 2. Otherwise, fatty hepatomegaly and possible left kidney cysts are noticed. Electronically Signed by: Radha Sutton MD. (11/13/2023 09:37:47 EDT)
[2023-11-13] MEDS ORDERED: Hydromorphone 1 mg/ml Injection ONE (10:31)
[2023-11-13] MEDS: Hydromorphone 1 mg/ml Injection IM ONE (10:38)
[2023-11-13 11:01] VITALS: BP 116/75
[2023-11-13 11:05] VITALS: O2SAT 97
== END 2023-11-13 11:05 | disposition home or self-care (01) ==
LOC: ED 07:27
DX: I88.0 Nonspecific mesenteric lymphadenitis (principal); K52.9 Noninfective gastroenteritis and colitis, unspecified; R10.84 Generalized abdominal pain; Z79.891 Long term (current) use of opiate analgesic; Z79.52 Long term (current) use of systemic steroids; Z72.0 Tobacco use
CPT/HCPCS: 36415; 74176; 80053; 81001; 83690; 85025; 96372; 99284; J1170; J1885; J2270; Q0162

== ENCOUNTER 2023-11-14 16:38 | Emergency (ER) | payer BC ==
[2023-11-14 16:57] VITALS: PULSE 95; TEMP 96.8
[2023-11-14] MEDS ORDERED: Sodium Chloride 0.9% 1000 ML 1,000 ML IV STA (17:14)
--- NOTE | 2023-11-14 17:19 | ERPHSYRPT ---
- History of Present Illness Time Seen by Provider: 11/14/23 17:17 Historian: patient Patient Subjective Stated Complaint: abd pain, diarrhea, RLQ tenderness, nausea Triage Nursing Assessment: pt to ED c/o RLQ pain, nausea, and diarrhea. was seen in ED this weekend, went today to PCP office for follow up and sent back to ED for pain and further evaluation. RLQ tender on palpation, bowel sounds active in all quads. pt tearful, guarding, and clammy on arrival to ED. Physician History: 43 years old female with past medical history of SLE, rheumatoid arthritis, obesity, cholecystectomy and hysterectomy. The patient is presenting to the emergency room with a chief complaint of severe right-sided abdominal pain. The patient states that her abdominal pain started last Tuesday 2 days from today when it was in the upper abdomen but it seems to have moved down to the right lower quadrant. She was seen at our emergency room yesterday had a workup including CAT scan of the abdomen which demonstrated inflammation of the intestine and the patient was discharged home on pain medication and steroids. Patient is feeling nauseous, no vomiting, no fever or chills. She denies any urinary symptoms. Her bowel movements are loose she has a history of hysterectomy and cholecystectomy. She has been taking the Cecil tablets that the doctor prescribed yesterday with some relief. Allergies/Adverse Reactions: azithromycin Allergy (Intermediate, Verified 11/13/23 07:40) Rash cefaclor [From Ceclor] Allergy (Intermediate, Verified 11/13/23 07:40) Rash Hx Tetanus, Diphtheria Vaccination/Date Given: Yes Hx Influenza Vaccination/Date Given: Yes Hx Pneumococcal Vaccination/Date Given: No Travel Risk - International Travel Have you traveled outside of the country in past 3 weeks: No - Emerging Infectious Disease Are you exhibiting symptoms associated with any current EIDs: Yes Symptoms: Abdominal Pain, Diarrhea - Review of Systems Constitutional: No Symptoms Abdominal/Gastrointestinal: Abdominal Pain, Nausea, Diarrhea All Other Systems: Reviewed and Negative - Past Medical History Pertinent Past Medical History: Yes Neurological History: No Pertinent History ENT History: No Pertinent History Cardiac History: No Pertinent History Respiratory History: No Pertinent History Endocrine Medical History: No Pertinent History Musculoskeletal History: No Pertinent History GI Medical History: No Pertinent History History: No Pertinent History Psycho-Social History: No Pertinent History Female Reproductive Disorders: No Pertinent History Other Medical History: stump tumor, ear problems - Past Surgical History Past Surgical History: Yes Neuro Surgical History: No Pertinent History Cardiac: No Pertinent History Respiratory: No Pertinent History Gastrointestinal: No Pertinent History Genitourinary: No Pertinent History Musculoskeletal: No Pertinent History Female Surgical History: No Pertinent History Other Surgical History: mastoidectomy, mult ear surgeries, tube lt ear. hysterectomy- stump tumor- 2 yrs ago. bilat oopherectomy on - Female History Hx Now: No - Social History Smoking Status: Current every day smoker How long have you smoked: 20yrs Exposure to second hand smoke: Yes Drug Use: none Patient Lives Alone: No - Social Determinants of Health Will the patient participate in the screening: Yes Do you worry about a steady place to live?: No Do you have any problems with any of the following?: No known problems In the past 12 months,have you had to go without utilities?: No Transportation Issues: No Has anyone in your support network made you feel unsafe?: No Have you or anyone in your house had to go without enough: No - Nursing Vital Signs Nursing Vital Signs: Initial Vital Signs Temperature 96.8 F 11/14/23 16:46 Pulse Rate 95 H 11/14/23 16:46 Respiratory Rate 20 11/14/23 16:46 Blood Pressure 138/102 11/14/23 16:46 O2 Sat by Pulse Oximetry 98 11/14/23 16:46 Pain Scale Pain Intensity 8 - Physical Exam General Appearance: mild distress Eye Exam: PERRL/EOMI, eyes nml inspection Ears, Nose, Throat Exam: normal ENT inspection, pharynx normal Neck Exam: normal inspection, non-tender, supple, full range of motion Respiratory Exam: normal breath sounds, chest tenderness, lungs clear Cardiovascular Exam: regular rate/rhythm, normal heart sounds, normal peripheral pulses Gastrointestinal/Abdomen Exam: soft, tenderness, other (Tenderness and Rebound Tenderness in the RLQ) Pelvic Exam: not done Rectal Exam: deferred Back Exam: normal inspection, normal range of motion Extremity Exam: normal inspection, normal range of motion, pelvis stable Neurologic Exam: alert, oriented x 3, cooperative, lockstitch waistband setter II-XII nml as tested, normal mood/affect, nml station & gait Skin Exam: normal color, warm SpO2 Interpretation: normal SpO2: 98 O2 Delivery: Room Air - Course Nursing assessment & vital signs reviewed: Yes Ordered Tests: Active Orders 24 hr Category Date Time Status IV Insertion STAT Care 11/14/23 17:14 Active NPO (ED) STAT Care 11/14/23 17:14 Active ABDOMEN AND PELVIS W CONTRAST [CT] Stat Exams 11/14/23 17:15 Taken AMYLASE Stat Lab 11/14/23 17:00 Completed CBC W DIFF Stat Lab 11/14/23 17:00 Completed CMP Stat Lab 11/14/23 17:00 Completed LIPASE Stat Lab 11/14/23 17:00 Completed UA W/RFX UR CULTURE Stat Lab 11/14/23 17:15 Ordered Medication Summary Discontinued Medications Generic Name Dose Route Start Last Admin Trade Name Freq PRN Reason Stop Dose Admin Sodium Chloride 1,000 mls @ 999 mls/hr 11/14/23 17:14 Sodium Chloride 0.9% 1000 Ml IV 11/14/23 18:14 .Q1H1M STA Sodium Chloride 1,000 mls @ 999 mls/hr 11/14/23 17:22 11/14/23 19:15 Sodium Chloride 0.9% 1000 Ml IV 11/14/23 18:22 Infused .Q1H1M STA Infusion Sodium Chloride Confirm 11/14/23 17:27 Sodium Chloride 0.9% 1000 Ml Administered 11/14/23 17:28 Dose 1,000 mls @ ud .ROUTE .STK-MED ONE Sodium Chloride Confirm 11/14/23 17:40 Sodium Chloride 0.9% 1000 Ml Administered 11/14/23 17:41 Dose 1,000 mls @ ud .ROUTE .STK-MED ONE Sodium Chloride Confirm 11/14/23 19:14 Sodium Chloride 0.9% 1000 Ml Administered 11/14/23 19:15 Dose 1,000 mls @ ud .ROUTE .STK-MED ONE Morphine Sulfate 4 mg 11/14/23 17:14 11/14/23 17:28 Morphine Sulfate 4 Mg/Ml Injection IV 11/14/23 17:15 4 mg STAT ONE Administration Morphine Sulfate Confirm 11/14/23 17:27 Morphine Sulfate 4 Mg/Ml Injection Administered 11/14/23 17:28 Dose 4 mg .ROUTE .STK-MED ONE Ondansetron HCl 4 mg 11/14/23 17:14 11/14/23 17:28 Ondansetron Hcl 4 Mg/2 Ml Vial IV 11/14/23 17:15 4 mg STAT ONE Administration Ondansetron HCl Confirm 11/14/23 17:27 Ondansetron Hcl 4 Mg/2 Ml Vial Administered 11/14/23 17:28 Dose 4 mg .ROUTE .STK-MED ONE Lab/Rad Data: Laboratory Result Diagrams 11/14/23 17:00 11/14/23 17:00 Laboratory Results 11/14/23 11/14/23 Range/Units 17:00 17:00 WBC 7.9 (3.98-10.04) x10^3/uL RBC 4.48 (3.93-5.22) x10^6/uL Hgb 13.6 (11.2-15.7) g/dL Hct 40.2 (34.1-44.9) % MCV 89.7 (79.4-94.8) fL MCH 30.4 (25.6-32.2) pg MCHC 33.8 (32.2-35.5) g/dL RDW 12.5 (11.7-14.4) % Plt Count 217 (182-369) x10^3/uL MPV 10.8 (9.4-12.3) fL Gran % 38.9 (34.0-71.1) % Immature Gran % (Auto) 0.3 (0.001-0.429) % Nucleat RBC Rel Count 0.0 (0.00-0.2) % Eos # (Auto) 0.25 (0.04-0.36) x10^3/uL Immature Gran # (Auto) 0.02 (0.001-0.031) x10^3u/L Absolute Lymphs (auto) 4.02 H (1.18-3.74) x10^3/uL Absolute Monos (auto) 0.48 (0.24-0.86) x10^3/uL Absolute Nucleated RBC 0.00 (0.00-0.012) x10^3u/L Lymphocytes % 51.0 (19.3-51.7) % Monocytes % 6.1 (4.7-12.5) % Eosinophils % 3.2 (0.7-5.8) % Basophils % 0.5 (0.1-1.2) % Absolute Granulocytes 3.08 (1.56-6.13) x10^3/uL Basophils # 0.04 (0.01-0.08) x10^3/uL Sodium 138 (135-145) mmol/L Potassium 3.8 (3.5-5.1) mmol/L Chloride 107 (98-107) mmol/L Carbon Dioxide 22 (22-30) mmol/L Anion Gap 12.5 (5-15) MEQ/L BUN 14 (7-17) mg/dL Creatinine 0.98 (0.52-1.04) mg/dL Estimated GFR 73.9 ML/MIN Glucose 98 (74-106) mg/dL Calcium 9.5 (8.4-10.2) mg/dL Total Bilirubin 0.40 (0.2-1.3) mg/dL AST 43 H (14-36) U/L ALT 66 H (0-35) U/L Alkaline Phosphatase 63 (38-126) U/L Serum Total Protein 7.3 (6.3-8.2) g/dL Albumin 4.2 (3.5-5.0) g/dL Amylase 70 (30-110) U/L Lipase 88 (23-300) U/L - Progress Progress Note: 11/14/23 17:21 Will check CBC, CMP, UA, lipase, CT scan of abdomen and pelvis with IV contrast. The patient will be started on IV fluid n.p.o., morphine sulfate 4 mg IV for the pain and Zofran 4 mg IV for the nausea. 11/14/23 19:15 The patient is feeling better stating that her pain is much less after the morphine sulfate IV fluid and IV Zofran. Her white blood cell count normal 7.9 hemoglobin 13.6. BUN 14 creatinine 0.98, glucose 198. CT scan of the abdomen and pelvis, improved compared to the 1 done yesterday. No abnormal bowel wall thickening and no free fluid. Just chronic diverticulosis and small left renal cyst but nothing acute. Patient was reassured about the above findings. She will be discharged home, accompanied by her . She can continue her pain medication that were prescribed yesterday by the emergency room physician. - Departure Departure Disposition: Home Clinical Impression: Right-sided abdominal pain of unknown cause Condition: Stable Critical Care Time: No Referrals: MONET CARTER NP [NON-STAFF PHY W/O PRIVILEGES] - Follow up/PCP as directed Instructions: Abdominal pain Additional Instructions: Continue present medication
[2023-11-14 17:26] LABS: Absolute Neutrophil Ct (ANC) 3.08 x10^3/uL (1.56-6.13); BASOPHIL % 0.5 % (0.1-1.2); Basophil (Absolute #) 0.04 x10^3/uL (0.01-0.08); Eosinophil % 3.2 % (0.7-5.8); Eosinophil (Absolute #) 0.25 x10^3/uL (0.04-0.36); Hematocrit 40.2 % (34.1-44.9); Hemoglobin 13.6 g/dL (11.2-15.7); IMMATURE GRAN # 0.02 x10^3u/L (0.001-0.031); IMMATURE GRAN % 0.3 % (0.001-0.429); Lymphocyte (Absolute #) 4.02 x10^3/uL (1.18-3.74); Mean Cell Volume 89.7 fL (79.4-94.8); Mean Corpuscular Hemoglobin 30.4 pg (25.6-32.2); Mean Corpuscular Hgb Concent. 33.8 g/dL (32.2-35.5); Mean Platelet Volume 10.8 fL (9.4-12.3); Monocyte (Absolute #) 0.48 x10^3/uL (0.24-0.86); Monocytes % 6.1 % (4.7-12.5); Neutrophil % 38.9 % (34.0-71.1); Platelet Count 217 x10^3/uL (182-369); Red Blood Count 4.48 x10^6/uL (3.93-5.22); Red Cell Distribution Width 12.5 % (11.7-14.4); White Blood Count 7.9 x10^3/uL (3.98-10.04)
[2023-11-14] MEDS ORDERED: Sodium Chloride 0.9% 1000 ML 1,000 ML ONE ×3 (17:27→19:14)
[2023-11-14] MEDS ORDERED: MORPHINE SULFATE 4 MG INJ ONE (17:27)
[2023-11-14] MEDS: Sodium Chloride 0.9% 1000 ML 1,000 ML IV STA (17:27)
[2023-11-14] MEDS ORDERED: Zofran 4 MG/2 ML VIAL ONE (17:27)
[2023-11-14] MEDS: MORPHINE SULFATE 4 MG INJ IV ONE (17:28)
[2023-11-14] MEDS: Zofran 4 MG/2 ML VIAL IV ONE (17:28)
[2023-11-14 17:34] LABS: ALBUMIN 4.2 g/dL (3.5-5.0); ANION GAP 12.5 MEQ/L (5-15); BILIRUBIN,TOTAL 0.4 mg/dL (0.2-1.3); Calcium 9.5 mg/dL (8.4-10.2); Creatinine 1 0.98 mg/dL (0.52-1.04); EST GLOMERULAR FILTRATION RATE 73.9 ML/MIN; Potassium 3.8 mmol/L (3.5-5.1); Total Protein 7.3 g/dL (6.3-8.2)
[2023-11-14 18:46] VITALS: RESP 18
[2023-11-14 19:14] VITALS: O2SAT 98
[2023-11-14 19:25] VITALS: BP 152/107
--- NOTE | 2023-11-15 08:48 | XRAY ---
Indication: Right lower quadrant pain. Appendicitis. Multiple contiguous axial images obtained through the abdomen and pelvis using 80 cc Isovue 370 contrast. Comparison: November 13, 2023. Lung bases demonstrates minimal degenerative atelectasis. Stable 9 mm right middle lobe calcified granuloma. Heart is not enlarged. Noncontrasted stomach and bowel loops appear nonobstructed again with normal appendix. Previous small bowel wall thickening improved. Again mild scattered colonic diverticulosis without diverticulitis, cholecystectomy, and hysterectomy. Previous small left mid abdomen mesenteric nodes unchanged. No free fluid/air. Remaining liver, pancreas, spleen, adrenal glands, kidneys, ureters, and bladder are unremarkable. Again minimal aortic calcifications without AAA or pathologic retroperitoneal lymphadenopathy. Impression: 1. Previous small bowel thickening improved. 2. Again chronic findings including right middle lobe calcified granuloma, colonic diverticulosis, tiny nonspecific mesenteric nodes, and minimal arteriosclerotic disease. 3. Remaining CT abdomen/pelvis with contrast exam is negative.
== END 2023-11-14 19:28 | disposition home or self-care (01) ==
LOC: ED 16:38
DX: R10.31 Right lower quadrant pain (principal); R10.11 Right upper quadrant pain; R11.0 Nausea; Z72.0 Tobacco use
CPT/HCPCS: 36000; 36415; 74177; 80053; 82150; 83690; 85025; 96374; 96375; 99284; J2270; J2405